=== PATIENT | female | born 1980 | race African-American/Black ===

== ENCOUNTER 2016-12-18 09:10 | Emergency (ER) | payer OTHER ==
[2016-12-18 09:38] VITALS: BP 114/64; BMI 28.0
--- NOTE | 2016-12-18 10:01 | DR.GENAD ---
HPI - PCP Primary Care Physician: EDI LEON - HPI Comment HPI Comment: NO DRAINAGE. STARTED 4 DAYS AGO. NO FEVER. - Complaint/Symptoms Chief Complaint Doctors Comments: CELLULITIS AND EARLY ABSCESS RIGHT ABDOMINAL WALL. Chief Complaint:: PT STATES " FOR THE PAST 5 DAYS I HAVE HAD AN AREA TO MY STOMACH THAT LOOKS LIKE A SPIDER BITE" Self Treatment fo Chief Complaint: PT HAS BEEN COVERING IT,, - Nurses notes reviewed Nurses Notes Review: Yes - Source History Provided: Patient - Mode of Arrival Mode of Arrival: Ambulatory - Timing Onset of Chief Complaint: 12/14/16 Came on: Suddenly - Duration Duration: Constant Duration: Days - Severity Severity: Moderate PMH - PMH Past Medical History: No Past Surgical History: Yes Surgical History: Cholecystectomy Past Surgical History Comment: HERNIA, D&C, DENTAL - Family History History of Family Medical Conditions: Yes Family Medical History: Cancer, [place], Coronary Artery Disease, Heart Failure, Hypertension - Social History Does patient currently use any type of tobacco product: No Have you used tobacco products in the last 12 months: No Type of Tobacco Use: None Does any household member use tobacco: No Alcohol Use: None Do you use any recreational Drugs:: No Lives With: Family Lives Where: Home - infectious screening In the last 2 months have you had wt loss of >10#?: NO Have you had fever, night sweats or hemotysis?: No Have you traveled outside the country in the last 6 months?: No Isolation: Standard ROS - Review of Systems Constitutional: No Symptoms Reported Eyes: No Symptoms Reported ENTM: No Symptoms Reported Respiratoy: No Symptoms Reported Cardiovascular: No Symptoms Reported Gastrointestinal/Abdominal: Abdominal Pain (ABDOMINAL WALL REDNESS/CELLULITIS/ EARLY ABSCESS) Neurological: No Symptoms Reported Musculoskeletal: Muscle Pain Integumentary: Other (CELLULITIS/ABSCESS RT ABDOMINAL WALL.) Hematologic/Lymphatic: No Symptoms Reported Endocrine: No Symptoms Reported All Other Systems: Reviewed and Negative PE - Vital Signs Vitals: Temperature 98.2 F Pulse Rate 78 Respiratory Rate 18 Blood Pressure [Right Arm] 138/81 Blood Pressure 114/64 O2 Sat by Pulse Oximetry 98 - General Limitations: No Limitations General Appearance: Alert - Head Head Exam: Normal Inspection - Eyes Eye exam: Normal Appearance - ENT ENT Exam: Normal External Ear Exam External Ear Exam: Normal External Inspection Throat Exam: Normal Inspection - Neck Neck Exam: Trachea Midline - Chest Chest Inspection: Symmetric Chest Wall Rise - Respiratory Respiratory Exam: Bilateral Clear to Auscultation - Cardiovascular Cardiovascular Exam: Regular Rate, Normal Rhythm, Normal Heart Sounds - Abdominal Exam Abdominal Exam: Normal Bowel Sounds, Distention, Other (RIGHT ABDOMINAL WALL CELLULITIS.) Abdominal Tenderness: Moderate (TENDERNESS. NO DRAINAGE.) - Extremities Extremities Exam: Normal Inspection - Back Back Exam: Normal Inspection - Neurologic Neurological Exam: Alert, Oriented X3 - Psychiatric Psychiatric Exam: Normal Affect, Normal Mood - Skin Skin Exam: Erythema MDM - Differential Diagnosis Differential Diagnosis: CELLULITIS ABDOMINAL WALL/ABSCESS Course - Treatment Treatment: see orders - Education/Counseling Education/Counseling: Patient, Education Educated On: Diagnosis, Needs for Follow Up - Diagnosis Discharge Problem: Cellulitis of right abdominal wall, Abscess of abdominal wall - Discharge Plan Disposition: 01 HOME, SELF-CARE Condition: Stable Prescriptions: Ibuprofen [MOTRIN TAB 600 MG *] 600 mg PO TID PRN #20 tab PRN Reason: Pain/Inflammation Sulfamethoxazole-Trimethoprim [BACTRIM DS TAB 800/160 MG *] 1 tab PO BID #20 tab Tramadol HCl 50 mg PO TID #15 tablet - Follow ups/Referrals Follow ups/Referrals: RAMILA LEON [Primary Care Provider] - 3 days - Instructions Instructions: Cellulitis, Abscess Additional Instructions: RETURN TO ED IF WORSE.
== END 2016-12-18 10:13 | disposition home or self-care (01) ==
LOC: ER 09:10
DX: L03.311 Cellulitis of abdominal wall (principal); L02.211 Cutaneous abscess of abdominal wall
CPT/HCPCS: 99281; 99282

== ENCOUNTER 2018-08-07 09:04 | Inpatient (IN) ==
[2018-08-07 09:20] LABS: BILIRUBIN,URINE NEGATIVE (NEGATIVE); BLOOD/HEMOGLOBIN,URINE NEGATIVE (NEGATIVE); GLUCOSE, URINE NEGATIVE (NEGATIVE); KETONES,URINE NEGATIVE (NEGATIVE); LEUKOCYTE ESTERASE ,URINE 3+ (NEGATIVE); NITRITES,URINE NEGATIVE (NEGATIVE); PROTEIN,URINE 1+ (NEGATIVE); UROBILINOGEN,URINE 2+ (NORMAL)
[2018-08-07 09:22] VITALS: BMI 33.3
[2018-08-07 09:27] LABS: APPEARANCE,URINE CLOUDY (CLEAR); COLOR,URINE YELLOW (YELLOW)
[2018-08-07 09:28] LABS: BACTERIA,URINE 1+ /HPF (NEGATIVE); RBC,URINE 0-2 /HPF (NONE SEEN); SQUAMOUS EPITHELIAL CELL,UR MODERATE /HPF (NEGATIVE)
[2018-08-07 09:35] LABS: AMNISURE ROM TEST NO MEMBRANES RUPTURE (NO RUPTURE)
[2018-08-07] MEDS ORDERED: LR 1000 ML IV 1,000 ML IV ONE (09:35)
[2018-08-07] MEDS ORDERED: NUBAIN INJ 200 MG VIAL MULTIDOSE IVP PRN (09:36)
[2018-08-07] MEDS ORDERED: PITOCIN IVP ONE (09:36)
[2018-08-07] MEDS ORDERED: D5LR 1L W PITOCIN 10 UNITS/L 10 UNITS/1,000 ML BAG IV PRN (09:36)
[2018-08-07] MEDS ORDERED: REGLAN INJ 10 MG VIAL IVP PRN (09:36)
[2018-08-07] MEDS ORDERED: D5 1/2 NS 1L W PITOCIN 20 UNITS/L 20 UNITS/1,000 ML BAG IV ONE (09:52)
[2018-08-07] MEDS ORDERED: PITOCIN ONE (09:52)
--- NOTE | 2018-08-07 09:53 | DR.OB ---
OB Quick Note - Assessment/Plan Assessment/Plan: L&D 08/07/18 at 9:50am S-No complaint except CTX. O-Afebrile,VSS [id number] with good LTV, +accel, no decels. CTX=q 3-5 min., mod. by palpation CVX=3cm/90%/0/VTX AROM with clear fluid. IUPC and FSE placed. A-IUP at 38 2/7 weeks in labor P-Begin pitocin augmentation F/U labs Anticipate with PP BTL as desired
[2018-08-07] MEDS ORDERED: FENTANYL INJ 100 mcg ONE (09:57)
[2018-08-07] MEDS ORDERED: ADRENALINE CHL INJ ONE (09:57)
[2018-08-07] MEDS ORDERED: XYLOCAINE 1 % (PLAIN) ONE (09:57)
[2018-08-07] MEDS ORDERED: NAROPIN EPIDURAL 0.2% + FENTANYL 90MCG 60 ML EPI ONE (09:58)
[2018-08-07] MEDS ORDERED: XYLOCAINE 2 % (PLAIN) ONE (09:58)
[2018-08-07] MEDS ORDERED: D5 1/2 NS 1000 ML 1,000 ML IV SCH (10:00)
[2018-08-07 10:02] LABS: BASOPHILS # (AUTO) 0.1 X10^3/uL (0.0-0.1); BASOPHILS % (AUTO) 0.5 % (0.2-1.0); EOSINOPHILS # (AUTO) 0.1 x10^3/uL (0.0-0.2); EOSINOPHILS % (AUTO) 0.5 % (0.9-2.9); HEMATOCRIT 34.8 % (36.0-47.0); HEMOGLOBIN 11.6 g/dL (12.0-16.0); LYMPHOCYTES # (AUTO) 1.8 X10^3/uL (1.3-2.9); LYMPHOCYTES % (AUTO) 16.6 % (21.0-51.0); MEAN CORPUSCULAR HEMOGLOBIN 25.5 pg (27.0-34.0); MEAN CORPUSCULAR HGB CONC 33.4 g/dL (33.0-35.0); MEAN CORPUSCULAR VOLUME 76.3 fL (80.0-100.0); MEAN PLATELET VOLUME 9.1 fL (7.4-11.0); MONOCYTES % (AUTO) 8.8 % (0.0-13.0); NEUTROPHILS % (AUTO) 73.6 % (42.0-75.0); PLATELET COUNT 261 X10^3/uL (150.0-450.0); RED BLOOD COUNT 4.56 X10^6/uL (3.5-5.4); RED CELL DISTRIBUTION WIDTH 14.6 % (11.6-16.5); WHITE BLOOD COUNT 10.8 X10^3/uL (3.6-10.0)
[2018-08-07 10:07] LABS: PLATELET MORPHOLOGY COMMENT NORMAL (NORMAL)
[2018-08-07 10:53] LABS: BLOOD UREA NITROGEN 6 mg/dL (7-18); CALCIUM 8.5 mg/dL (8.5-10.1); CARBON DIOXIDE 24.9 mmol/L (21-32); CHLORIDE 105 mmol/L (98-107); CREATININE 0.74 mg/dL (0.55-1.02); SODIUM 139 mmol/L (136-145); eGFR NON BLACK RACES > 60 (>60)
--- NOTE | 2018-08-07 12:00 | DR.OB ---
OB Quick Note - Assessment/Plan Assessment/Plan: L&D 08/07/18 at 11:55am Pitocin=12mu/min. S-No complaint. O-Afebrile,VSS [id number] with good LTV, +accel, no decel. CTX=q 1 1/2 to 2 min., about 45-65mmHg CVX=5-6cm/90%/0 A-IUP at 38 2/7 weeks in labor P-Cont. pitocin induction Anticipate
[2018-08-07] MEDS ORDERED: PHENERGAN INJ 25 MG IV PRN (12:41)
[2018-08-07] MEDS: D5 1/2 NS 1000 ML 1,000 ML with PITOCIN 20 UNITS IV SCH ×4 (13:33→20:30)
--- NOTE | 2018-08-07 13:39 | DR.OB ---
OB Quick Note - Assessment/Plan Assessment/Plan: Delivery Note LICENSED PHARMACIST 08/07/18 at 12:30pm Patient complete and pushing. Head delivered over intact perineum. Nuchal cord x 1 not able to be reduced but loose. Nose and mouth bulb suctioned. Body delivered over intact perineum. Cord clamped x 2 and cut. Cord sent for gases. Placenta delivered spontaneously / intact / 3 vessel cord. No CVX / vaginal / perineal tears noted. Viable male infant, VTX/OA, wt=7'2" and 9/9, stable to NBN. Mother stable to RR. [id number].
[2018-08-07] MEDS ORDERED: AMBIEN PO PRN (13:41)
[2018-08-07] MEDS ORDERED: ADACEL or BOOSTRIX TDaP VACCINE IM ONE (13:41)
[2018-08-07] MEDS ORDERED: DERMOPLAST SPRAY TOP PRN (13:41)
[2018-08-07] MEDS ORDERED: MILK OF MAGNESIA PO PRN (13:41)
[2018-08-07] MEDS: MOTRIN TAB 800 MG PO PRN ×2 (15:07→22:07)
[2018-08-07] MEDS: ZANTAC PO SCH (20:21)
[2018-08-08] MEDS: D5 1/2 NS 1000 ML 1,000 ML with PITOCIN 20 UNITS IV SCH ×4 (05:20→16:37)
[2018-08-08 05:23] LABS: HEMATOCRIT 32.3 % (36.0-47.0); HEMOGLOBIN 10.4 g/dL (12.0-16.0)
[2018-08-08] MEDS ORDERED: LR 1000 ML IV 1,000 ML IV ONE (06:55)
[2018-08-08] MEDS ORDERED: ANCEF 1 GRAM IV PREMIX* 1 G/50 ML BAG IV ONE (06:55)
[2018-08-08] MEDS ORDERED: ADRENALINE CHL INJ ONE (07:00)
[2018-08-08] MEDS ORDERED: BENADRYL INJ 50 MG VIAL IVP PRN (08:08)
[2018-08-08] MEDS ORDERED: PHENERGAN INJ 25 MG IVP PRN (08:08)
[2018-08-08] MEDS ORDERED: ZOFRAN INJ 4 MG VIAL IVP PRN (08:08)
[2018-08-08] MEDS ORDERED: REGLAN INJ 10 MG VIAL IVP PRN (08:08)
[2018-08-08] MEDS ORDERED: DILAUDID INJ IVP PRN (08:08)
[2018-08-08] MEDS ORDERED: MYLICON TAB 80 MG CHEW PO PRN (08:21)
[2018-08-08] MEDS: PERCOCET TAB 5/325 MG PO PRN ×2 (08:58→13:21)
[2018-08-08] MEDS: ZANTAC PO SCH ×2 (08:59→20:15)
[2018-08-08] MEDS: PRENATAL PLUS PO SCH (08:59)
[2018-08-08] MEDS: MOTRIN TAB 800 MG PO PRN ×2 (12:12→20:15)
[2018-08-08] MEDS ORDERED: DIPRIVAN VIAL ONE (15:54)
[2018-08-08] MEDS ORDERED: VERSED ONE (15:54)
[2018-08-08] MEDS ORDERED: ZOFRAN INJ 4 MG VIAL ONE (15:54)
[2018-08-08] MEDS: BACTROBAN TOPICAL OINT TOP SCH (21:03)
[2018-08-09] MEDS: BACTROBAN TOPICAL OINT TOP SCH ×2 (05:20→05:51)
[2018-08-09] MEDS: PERCOCET TAB 5/325 MG PO PRN (05:23)
[2018-08-09] MEDS: PRENATAL PLUS PO SCH (08:18)
[2018-08-09] MEDS: ZANTAC PO SCH (08:18)
[2018-08-09] MEDS: MOTRIN TAB 800 MG PO PRN (08:18)
[2018-08-09 08:27] VITALS: BP 116/63
== END 2018-08-09 13:20 | disposition home or self-care (01) | DRG 798 ==
LOC: ER 09:04 → LD 09:27 → MED/SURG 13:39
PROVIDERS: ADMIT Specialist; ATTEND Specialist
DX: Z30.2 Encounter for sterilization; O36.1990 Maternal care for other isoimmunization, unspecified trimester, not applicable or unspecified; O26.899 Other specified pregnancy related conditions, unspecified trimester; O09.513 Supervision of elderly primigravida, third trimester; Z37.0 Single live birth; Z3A.38 38 weeks gestation of pregnancy
CPT/HCPCS: 36415; 59409; 80048; 81001; 84112; 85014; 85018; 85025; 86592; 86850; 86880; 86885; 86900; 86901; 86905; 87086; 99284; A4216; A4222; S0197; J0171; J0690; J2250; J2405; J2590; J2704; J3010; J3490; J7120; S5010